=== PATIENT | female | born 1995 | race Caucasian/White ===

== ENCOUNTER 2017-04-04 15:19 | Emergency (ER) | payer SELFPAY ==
--- NOTE | 2017-04-04 18:01 | ED ---
Influenza-Like Illness - History of Current Complaint Chief Complaint: EDFluSymptoms Time Seen by Provider: 04/04/17 17:41 - Allergy/Home Medications Allergies/Adverse Reactions: Allergies Allergy/AdvReac Type Severity Reaction Status Date / Time No Known Allergies Allergy Verified 04/04/17 15:48 PMH/Surg Hx/FS Hx/Imm Hx Infectious Disease History: No Infectious Disease History: Denies: Traveled Outside the [place] in Last 30 Days - Social History Alcohol Use: Occasionally Substance Use Type: Reports: None Smoking Status (MU): Never Smoked Tobacco Physical Exam Vital Signs On Initial Exam: Initial Vitals Temp Pulse Resp BP Pulse Ox 98.9 F 100 20 123/84 97 04/04/17 15:45 04/04/17 15:45 04/04/17 15:45 04/04/17 15:45 04/04/17 15:45 Diagnostics - Vital Signs Vital Signs Temp Pulse Resp BP Pulse Ox 04/04/17 15:45 98.9 F 100 20 123/84 97 - Laboratory Lab Results: Lab Results 04/04/17 Range/Units 17:04 Influenza A (Rapid) Negative (Negative) Influenza B (Rapid) Negative (Negative) Lab Statement: Any lab studies that have been ordered have been reviewed, and results considered in the medical decision making process. Flu Symptom Course/Dx - Diagnoses Differential Diagnosis/HQI/PQRI: Positive: Bronchitis, Influenza, Upper Respiratory Infection Provider Diagnoses: Bronchitis, URI (upper respiratory infection) Discharge - Discharge Plan Condition: Good Disposition: HOME Patient Education Materials: Acute Bronchitis (ED), Upper Respiratory Infection (DC) Referrals: [facility] - Maldonado DUBON [Primary Care Provider] - Additional Instructions: Increase fluid intake and get plenty of rest. Recommend vitamin c, eating good foods, mucinex and tea with honey. Cover mouth and wash hands frequently to prevent spread of germs Follow up with PCP. Any new or worsening symptoms please seek medical attention promptly.
--- NOTE | 2017-04-04 18:21 | ED ---
Influenza-Like Illness - HPI Summary HPI Summary: 21 female presents to ED with complaints of cough, chills and body aches that began last night and worsened this am. States she is worried she has the flu. Denies known fever. No abdominal pain, vomiting but admits to decreased appetite. No sore throat or nasal congestion. No ear pain. No other complaints. No PMHx. No medication prior to arrival. - History of Current Complaint Chief Complaint: EDFluSymptoms Time Seen by Provider: 04/04/17 17:41 Hx Obtained From: Patient Onset/Duration: Sudden Onset, Lasting Hours, Still Present Severity: Mild Associated Signs & Symptoms: F/C - chills, Myalgia, Cough - Allergy/Home Medications Allergies/Adverse Reactions: Allergies Allergy/AdvReac Type Severity Reaction Status Date / Time No Known Allergies Allergy Verified 04/04/17 15:48 PMH/Surg Hx/FS Hx/Imm Hx Endocrine/Hematology History: Denies: Hx Diabetes Cardiovascular History: Denies: Hx Hypertension Respiratory History: Denies: Hx Asthma - Surgical History Surgery Procedure, Year, and Place: n/a - Immunization History Date of Tetanus Vaccine: did not have Immunizations Up to Date: Yes Infectious Disease History: No Infectious Disease History: Denies: Traveled Outside the [place] in Last 30 Days - Family History Known Family History: Positive: None - Social History Alcohol Use: Occasionally Substance Use Type: Reports: None Smoking Status (MU): Never Smoked Tobacco Review of Systems Positive: Chills ENT: Negative Cardiovascular: Negative Positive: Cough Neurological: Negative All Other Systems Reviewed And Are Negative: Yes Physical Exam Triage Information Reviewed: Yes Vital Signs On Initial Exam: Initial Vitals Temp Pulse Resp BP Pulse Ox 98.9 F 100 20 123/84 97 04/04/17 15:45 04/04/17 15:45 04/04/17 15:45 04/04/17 15:45 04/04/17 15:45 Vital Signs Reviewed: Yes Appearance: Positive: Well-Appearing, No Pain Distress, Well-Nourished Skin: Positive: Warm, Skin Color Reflects Adequate Perfusion, Dry. Negative: Cold, Tender, Pale, Erythema @ Head/Face: Positive: Normal Head/Face Inspection Eyes: Positive: Conjunctiva Clear ENT: Positive: Hearing grossly normal, Pharynx normal, TMs normal, Uvula midline. Negative: Nasal congestion, Nasal drainage, Tonsillar swelling, Tonsillar exudate Neck: Positive: Supple, Nontender, No Lymphadenopathy Respiratory/Lung Sounds: Positive: Clear to Auscultation, Breath Sounds Present. Negative: Rales, Rhonchi, Wheezes Cardiovascular: Positive: Normal, RRR, Pulses are Symmetrical in both Upper and Lower Extremities. Negative: Murmur, Rub Abdomen Description: Positive: Nontender, Soft Bowel Sounds: Positive: Present Musculoskeletal: Positive: Normal, Strength/ROM Intact Neurological: Positive: Normal, Sensory/Motor Intact, Alert, Oriented to Person Place, Time Diagnostics - Vital Signs Vital Signs Temp Pulse Resp BP Pulse Ox 04/04/17 15:45 98.9 F 100 20 123/84 97 - Laboratory Lab Results: Lab Results 04/04/17 Range/Units 17:04 Influenza A (Rapid) Negative (Negative) Influenza B (Rapid) Negative (Negative) Lab Statement: Any lab studies that have been ordered have been reviewed, and results considered in the medical decision making process. Flu Symptom Course/Dx - Course Course Of Treatment: influenza obtained and negative. normal PE and normal vitals. appears to be suffering from viral URI/bronchitis. will treat symptomatically. is aware of these treatments. cough medicine at bedtime if desired. fluids, rest, vitamins. follow up pcp. aware of worsening signs and symptoms. no other concern for emergent etiology at this time. - Diagnoses Differential Diagnosis/HQI/PQRI: Positive: Bronchitis, Influenza, Pneumonia, Upper Respiratory Infection Provider Diagnoses: Bronchitis, URI (upper respiratory infection) Discharge - Discharge Plan Condition: Good Disposition: HOME Patient Education Materials: Upper Respiratory Infection (DC), Acute Bronchitis (ED) Referrals: [facility] - [place]don[place] [Primary Care Provider] - Additional Instructions: You appear to be suffering from a viral infection. Increase fluid intake and get plenty of rest. Recommend vitamin c, eating good foods, mucinex and tea with honey. Cover mouth and wash hands frequently to prevent spread of germs Follow up with PCP. Any new or worsening symptoms please seek medical attention promptly.
[2017-04-04 18:32] VITALS: BP 108/55
== END 2017-04-04 18:30 | disposition home or self-care (01) ==
LOC: ED 15:19
DX: J40 Bronchitis, not specified as acute or chronic (principal); J06.9 Acute upper respiratory infection, unspecified; R05 Cough; R68.83 Chills (without fever)
CPT/HCPCS: 87502; 99282